=== PATIENT | female | born 1975 | race Caucasian/White ===

== ENCOUNTER 2020-08-05 12:14 | Emergency (ER) | payer MEDICAID ==
[~2020-08-05] VITALS: Ht 152.4 cm; Wt 63.5 kg
[2020-08-05 12:45] VITALS: BP 125/71
--- NOTE | 2020-08-05 12:49 | NUR ---
PT PLACED IN COVID TENT FOR PRECAUTIONS.
[2020-08-05] MEDS ORDERED: HYDROcodone/APAP 5/325 MG 1 TAB TAB PO ONE (13:25)
[2020-08-05] MEDS ORDERED: ONDANSETRON 4 MG ODT PO ONE (13:25)
[2020-08-05 15:00] VITALS: BP 125/71
--- NOTE | 2020-08-05 15:00 | NUR ---
Patient discharged with v/s stable. Written and verbal after care instructions given and explained. Patient alert, oriented and verbalized understanding of instructions. Ambulatory with steady gait. All questions addressed prior to discharge. ID band removed. Patient advised to follow up with PMD. Rx of Wiggins 5mg-325mg, Zofran ODT given. Patient educated on indication of medication including possible reaction and side effects. Opportunity to ask questions provided and answered.
--- NOTE | 2020-08-07 14:11 | NUR ---
+ covid result received from lab. Copy given to infection control
== END 2020-08-05 15:00 | disposition home or self-care (01) ==
LOC: MED 12:14
DX: R51.9 Headache, unspecified (principal); Z20.828 Contact with and (suspected) exposure to other viral communicable diseases
CPT/HCPCS: 70450; 99284; Q0162; U0003